=== PATIENT | male | born 1990 | race African-American/Black ===

== ENCOUNTER 2018-07-01 02:58 | Emergency (ER) | payer SELFPAY ==
[~2018-07-01] VITALS: Ht 170.2 cm; Wt 67.7 kg
[2018-07-01 03:11] VITALS: BP 112/73
[2018-07-01 05:04] LABS: Urine Bacteria FEW /hpf (None Seen); Urine Blood Negative /uL (Negative); Urine Mucus FEW (None Seen); Urine WBC 5 /hpf (0 - 3)
[2018-07-01 05:22] LABS: Alcohol, Urine < 3.0 mg/dL (0-5); Amphetamine Screen, Urine NEGATIVE (NEGATIVE); Barbiturate Scree,Urine NEGATIVE (NEGATIVE); Benzodiazephine Screen, Urine NEGATIVE (NEGATIVE); Cannabinoid Screen, Urine POSITIVE (NEGATIVE); Cocaine Screen, Urine NEGATIVE (NEGATIVE); Opiate Scree,Urine NEGATIVE (NEGATIVE); Phencyclidine Screen, Urine NEGATIVE (NEGATIVE)
[2018-07-01] MEDS ORDERED: AZITHROMYCIN 250 MG TAB PO ONE (05:30)
[2018-07-01] MEDS ORDERED: cefTRIAXone SOD 1,000 MG VL IM ONE (05:30)
== END 2018-07-01 05:49 | disposition home or self-care (01) ==
LOC: ER 03:02
DX: Z20.2 Contact with and (suspected) exposure to infections with a predominantly sexual mode of transmission (principal)
CPT/HCPCS: 80307; 81001; 96372; 99284; J0696